=== PATIENT | female | born 1975 | race Caucasian/White ===

== ENCOUNTER 2022-12-14 13:24 | Emergency (ER) | payer BC ==
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
[2022-12-14] MEDS ORDERED: KETOROLAC 30 MG/ML INJ ONE (13:43)
--- NOTE | 2022-12-14 14:10 | RAD REPORT ---
EXAM DESCRIPTION: RAD - Wrist Left 3 View - 12/14/2022 2:03 pm CLINICAL HISTORY: Pain;Swelling Pain COMPARISON: Hand Left 3 View dated 12/14/2022 FINDINGS: Diffuse osteopenia. Mildly impacted fracture of the distal radius metaphysis is suspected with mild surrounding soft tissue swelling.
--- NOTE | 2022-12-14 14:11 | RAD REPORT ---
EXAM DESCRIPTION: RAD - Hand Left 3 View - 12/14/2022 2:03 pm CLINICAL HISTORY: Pain;Swelling COMPARISON: No comparisons FINDINGS: Moderate soft tissue swelling is seen along the dorsum of the wrist. Mildly impacted fract ure suspected distal radial metaphysis.
[2022-12-14 15:58] VITALS: TEMP 98.2; O2SAT 100
[2022-12-14 16:00] VITALS: BP 132/93
--- NOTE | 2022-12-29 15:17 | ER ---
Nurse's Notes [facility] Name: Katie Montiel Age: 47 yrs Sex: Female : 1975 Arrival Date: 12/14/2022 Time: 13:29 Bed 15 Private MD: Diagnosis: Left distal radius fracture Presentation: 12/14 13:35 Chief complaint: Left wrist and hand pain and swelling upon waking today. Coronavirus hb screen: At this time, the client does not indicate any symptoms associated with coronavirus-19. Ebola Screen: No symptoms or risks identified at this time. Initial Sepsis Screen: Does the patient meet any 2 criteria? No. Patient's initial sepsis screen is negative. Does the patient have a suspected source of infection? No. Patient's initial sepsis screen is negative. Risk Assessment: Do you want to hurt yourself or someone else? Patient reports no desire to harm self or others. Onset of symptoms was December 14, 2022. 13:35 Method Of Arrival: Ambulatory hb 13:35 Acuity: [place] 4 hb Historical: - Allergies: 13:37 No Known Allergies; hb - PMHx: 13:37 None; hb - PSHx: 13:37 None; hb - Immunization history:: Adult Immunizations up to date. - Social history:: Smoking status: Patient reports the use of cigarette tobacco products, smokes one-half pack cigarettes per day. Screenin:[facility] ED Fall Risk Assessment (Adult) History of falling in the last 3 months, kc6 including since admission No falls in past 3 months (0 pts) Confusion or Disorientation No (0 pts) Intoxicated or Sedated No (0 pts) Impaired Gait No (0 pts) Mobility Assist Device Used No (0 pt) Altered Elimination No (0 pt) Score/Fall Risk Level 0 - 2 = Low Risk Oriented to surroundings, Maintained a safe environment, Educated pt \T\ family on fall prevention, incl call for assistance when getting out of bed, Assessed \T\ reinforced patient's understanding of fall precautions, Hourly rounding (assess needs \T\ fall precautionary measures) done. Abuse screen: Denies threats or abuse. Denies injuries from another. Nutritional screening: No deficits noted. Tuberculosis screening: No symptoms or risk factors identified. Assessment: 14:48 General: Appears in no apparent distress. comfortable, Behavior is calm, cooperative, kc6 appropriate for age. Pain: Denies pain. Neuro: Qiu Agitation-Sedation Scale (RASS): 0 - Alert and Calm Level of Consciousness is awake, alert, obeys commands, Oriented to person, place, time, situation, Appropriate for age. Cardiovascular: Capillary refill < 3 seconds. Respiratory: Airway is patent Trachea midline Respiratory effort is even, unlabored, Respiratory pattern is regular, symmetrical. GI: No signs and/or symptoms were reported involving the gastrointestinal system. : No signs and/or symptoms were reported regarding the genitourinary system. EENT: No signs and/or symptoms were reported regarding the EENT system. Derm: No signs and/or symptoms reported regarding the dermatologic system. Skin is intact, Skin is pink, warm \T\ dry. Musculoskeletal: Circulation, motion, and sensation intact. Capillary refill < 3 seconds, Range of motion: limited in left pinky and ring finger. Vital Signs: 13:35 BP 127 / 88; Pulse 76; Resp 16; Temp 98.2; Pulse Ox 100% on R/A; Weight 72.57 kg; hb Height 5 ft. 7 in. ; Pain 9/10; 14:50 BP 132 / 93; Pulse 78; Resp 18 S; Pulse Ox 100% on R/A; kc6 13:35 Body Mass Index 25.06 (72.57 kg, 170.18 cm) hb 13:35 Pain Scale: Adult hb ED Course: 13:29 Patient arrived in ED. mr 13:34 Virginia Garcia, [facility]N [facility] 13:34 Chris Luna MD is Attending Physician. jh7 13:37 Triage completed. hb 13:37 Arm band placed on. hb 14:05 XRAY Hand LEFT 3 View In Process Unspecified. EDMS 14:05 XRAY Wrist LEFT 3 view In Process Unspecified. EDMS 14:48 Greer Amador, KAILASH is Primary Nurse. kc6 14:49 Patient has correct armband on for positive identification. Bed in low position. Call kc6 light in reach. Side rails up X 1. 15:29 Orthoglass splint: Sugar tong splint applied on left arm. Sling applied to left arm. em1 15:30 Trent Charles MD is Referral Physician. 7 Administered Medications: 13:43 Drug: Ketorolac IM 60 mg Route: IM; Site: right ventrogluteal; 14:48 Follow up: Response: No adverse reaction; Pain is decreased kc6 Outcome: 15:32 Discharge ordered by MD. mcginnis 15:50 Patient left the ED. kj1 Signatures: Dispatcher [employer] EDWV Wolf Winter Trujillo, Vinicio em1 Liliam Jaimes, RN RN Mckenna Desouza kj1 Virginia Garcia FNP FNP jh7 Campbell, Kaitlyn, RN RN kc6
--- NOTE | 2022-12-29 15:17 | EDPHYS ---
Physician Documentation [facility] Name: Katie Montiel Age: 47 yrs Sex: Female : 1975 Arrival Date: 12/14/2022 Time: 13:29 Bed 15 Private MD: ED Physician Chris Luna HPI: 12/14 13:35 This 47 yrs old Female presents to ER via Ambulatory with complaints of Hand Injury, jh7 Wrist Injury. 13:35 The patient or guardian reports decreased range of motion, pain, swelling, tenderness. jh7 The complaints affect the left hand diffusely. Context: The problem was sustained at home, resulted from an unknown cause. Onset: The symptoms/episode began/occurred this morning. Associated signs and symptoms: Pertinent negatives: cyanosis distally, decreased sensation distally, fever, numbness distally, tingling distally. 47-year-old female reports that she woke up with left wrist and hand pain with swelling. Denies any known injury and wonders if she did something in her sleep. Reports trouble with range of motion of the wrist.. Historical: - Allergies: 13:37 No Known Allergies; hb - PMHx: 13:37 None; hb - PSHx: 13:37 None; hb - Immunization history:: Adult Immunizations up to date. - Social history:: Smoking status: Patient reports the use of cigarette tobacco products, smokes one-half pack cigarettes per day. ROS: 13:35 Constitutional: Negative for fever, chills, and weight loss, Eyes: Negative for injury, jh7 pain, redness, and discharge, Neck: Negative for injury, pain, and swelling, Cardiovascular: Negative for chest pain, palpitations, and edema, Respiratory: Negative for shortness of breath, cough, wheezing, and pleuritic chest pain, Back: Negative for injury and pain, Skin: Negative for injury, rash, and discoloration, Neuro: Negative for headache, weakness, numbness, tingling, and seizure. 13:35 MS/extremity: Positive for decreased range of motion, pain, swelling, tenderness. 13:35 All other systems are negative. Exam: 13:35 Constitutional: This is a well developed, well nourished patient who is awake, alert, jh7 and in no acute distress. Head/Face: Normocephalic, atraumatic. Eyes: Pupils equal round and reactive to light, extra-ocular motions intact. Lids and lashes normal. Conjunctiva and sclera are non-icteric and not injected. Cornea within normal limits. Periorbital areas with no swelling, redness, or edema. Neck: Trachea midline, no thyromegaly or masses palpated, and no cervical lymphadenopathy. Supple, full range of motion without nuchal rigidity, or vertebral point tenderness. No Meningismus. Cardiovascular: Regular rate and rhythm with a normal S1 and S2. No gallops, murmurs, or rubs. Normal PMI, no JVD. No pulse deficits. Respiratory: Lungs have equal breath sounds bilaterally, clear to auscultation and percussion. No rales, rhonchi or wheezes noted. No increased work of breathing, no retractions or nasal flaring. Abdomen/GI: Soft, non-tender, with normal bowel sounds. No distension or tympany. No guarding or rebound. No evidence of tenderness throughout. Skin: Warm, dry with normal turgor. Normal color with no rashes, no lesions, and no evidence of cellulitis. Neuro: Awake and alert, GCS 15, oriented to person, place, time, and situation. Sensory grossly intact. Normal gait. 13:35 Musculoskeletal/extremity: ROM: limited active range of motion, in the left wrist, Circulation is intact in all extremities. Pulses: are normal with no appreciated deficits, Sensation intact. Diffuse swelling of the L wrist spreading to left hand. Difficulty with flexion and extension of the wrist secondary to pain. There is tenderness to palpation over the distal radius.. Vital Signs: 13:35 BP 127 / 88; Pulse 76; Resp 16; Temp 98.2; Pulse Ox 100% on R/A; Weight 72.57 kg; hb Height 5 ft. 7 in. ; Pain 9/10; 14:50 BP 132 / 93; Pulse 78; Resp 18 S; Pulse Ox 100% on R/A; kc6 13:35 Body Mass Index 25.06 (72.57 kg, 170.18 cm) hb 13:35 Pain Scale: Adult hb Procedures: 14:27 Splinting: Splint applied to Left wrist using Orthoglass splint, applied by jh7 Examined by me, post splint application: neurovascular intact, 2+ distal pulses palpable, brisk capillary refill noted, Patient tolerated well, Finger traps applied 20 minutes before splinting.. MDM: 13:34 Patient medically screened. [facility] 15:10 Differential diagnosis: closed fracture, contusion. Data reviewed: vital signs, nurses [facility] notes, radiologic studies, plain films. I considered the following discharge prescriptions or medication management in the emergency department Medications were administered in the Emergency Department. See MAR. Counseling: I had a detailed discussion with the patient and/or guardian regarding: the historical points, exam findings, and any diagnostic results supporting the discharge/admit diagnosis, the need for outpatient follow up, a orthopedic surgeon, to return to the emergency department if symptoms worsen or persist or if there are any questions or concerns that arise at home. Response to treatment: the patient's symptoms have mildly improved after treatment. 12/14 13:38 Order name: XRAY Hand LEFT 3 View; Complete Time: 14:24 [facility] 12/14 13:38 Order name: XRAY Wrist LEFT 3 view; Complete Time: 14:24 [facility] 12/14 14:27 Order name: Misc. Order: finger traps 20 minutes; Complete Time: 15:12 [facility] 12/14 14:27 Order name: Sugar Tong Forearm Splint; Complete Time: 15:22 [facility] 12/14 14:27 Order name: Sling; Complete Time: 15:22 [facility] Administered Medications: 13:43 Drug: Ketorolac IM 60 mg Route: IM; Site: right ventrogluteal; hb 14:48 Follow up: Response: No adverse reaction; Pain is decreased kc6 Disposition: 15:53 Co-signature as Attending Physician, Chris Luna MD I reviewed the patient's care rn provided by the Advanced Practice Provider and agree with the diagnosis and treatment plan. Disposition Summary: 12/14/22 15:32 Discharge Ordered Location: Home [facility] Problem: new [facility] Symptoms: have improved [facility] Condition: Stable [facility] Diagnosis - Left distal radius fracture [facility] Followup: [facility] - With: Trent Charles MD - When: 1 week - Reason: Recheck today's complaints Discharge Instructions: - Discharge Summary Sheet [facility] - Cast or Splint Care, Adult jh7 - Wrist Fracture Treated With Immobilization [facility] - How to Use a Sling [facility] Forms: - Work release form [facility] - Medication Reconciliation Form [facility] - Thank You Letter [facility] Prescriptions: - Naprosyn 500 mg Oral Tablet - take 1 tablet by ORAL route 2 times per day take with food; 30 tablet; Refills: jh7 0, Product Selection Permitted Signatures: Dispatcher [employer] Chris Chaudhry MD MD rn Baxter, Heather RN RN Virginia Cai, INVESTIGATIVE RESEARCH SPECIALIST INVESTIGATIVE RESEARCH SPECIALIST jh7 Greer Amador RN [id number]
== END 2022-12-14 15:50 | disposition home or self-care (01) ==
LOC: ER 13:24
PROC: 2W3DX1Z Immobilization of Left Lower Arm using Splint (ICD-10-PCS; principal; 2022-12-14)
DX: S52.502A Unspecified fracture of the lower end of left radius, initial encounter for closed fracture (principal); F17.210 Nicotine dependence, cigarettes, uncomplicated
CPT/HCPCS: 96372; 99283